=== PATIENT | male | born 1980 | race African-American/Black ===

== ENCOUNTER 2016-06-06 09:11 | Emergency (ER) | payer OTHER ==
--- NOTE | ~2016-06-06 | CR169 ---
[facility]. [facility] A Service of [facility] RADIOLOGY TEXT RESULTS PATIENT: GURU GONZALEZ LOCATION: SED : 82 UNIT #: [id number] AGE: [address]: Toñito Pat MD SEX: M ORDER DR: [id number] [id number] MR#: [id number] Acc #: [id number] NAME: GURU GONZALEZ : 1980 SEX: M STUDY DATE/TIME: 06/06/2016 9:19 UNIT: SED ROOM: STUDY DESCRIPTION: CR Knee 2 Views Lt Attending Physician: Toñito Pat M.D. Ordering Physician: Toñito Pat M.D. Primary Care Physician: No Primary Care Physician MEDICAL IMAGING REPORT This report is preliminary unless electronic signature is present. EXAM Left knee 06/06/2016 HISTORY Left knee pain and swelling since yesterday. COMPARISON STUDIES None. FINDINGS 2 views of the left knee demonstrate no acute fracture or dislocation. No significant joint effusion. Joint spaces are within normal limits. Soft tissues are unremarkable. IMPRESSION Unremarkable left knee. If clinical symptoms persist, consider further evaluation with a nonemergent left knee MRI to exclude internal derangement of the joint. Dictated by... Perfecto Pineda M.D. THIS IS AN ELECTRONICALLY VERIFIED REPORT Perfecto Pineda M.D. at 06/07/2016 8:42 AM BEVERLY/brennen TD: 06/06/2016 21:09 JOB #: [id number] [facility] A Service [facility] RADIOLOGY TEXT RESULTS PATIENT: GURU GONZALEZ LOCATION: SED : [birth year] UNIT #: [id number] AGE: [address]: Toñito Pat MD SEX: M ORDER DR: MEDICAL IMAGING REPORT Page 1 of 1
== END 2016-06-06 10:20 | disposition home or self-care (01) ==
LOC: SED 09:11
DX: S83.92XA Sprain of unspecified site of left knee, initial encounter (principal); I10 Essential (primary) hypertension; F17.210 Nicotine dependence, cigarettes, uncomplicated; X58.XXXA Exposure to other specified factors, initial encounter; Y92.89 Other specified places as the place of occurrence of the external cause
CPT/HCPCS: 29505; 73560; 99283